=== PATIENT | male | born 1985 | race Caucasian/White ===

== ENCOUNTER 2016-12-23 05:16 | Emergency (ER) | payer MEDICAID ==
[~2016-12-23] VITALS: Ht 175.3 cm; Wt 80.3 kg
[2016-12-23] MEDS ORDERED: GABA-827 PO (05:34)
[2016-12-23 05:44] VITALS: BP 143/77
[2016-12-23] MEDS ORDERED: IBUPROFEN 200 MG TABLET ONE ×2 (06:37→06:38)
[2016-12-23] MEDS ORDERED: IBUPROFEN 200 MG TABLET PO ONE (07:00)
== END 2016-12-23 06:49 | disposition home or self-care (01) ==
LOC: ED 05:50
DX: J18.9 Pneumonia, unspecified organism (principal); J91.8 Pleural effusion in other conditions classified elsewhere; L98.8 Other specified disorders of the skin and subcutaneous tissue; Z85.828 Personal history of other malignant neoplasm of skin
CPT/HCPCS: 71020; 99284

== ENCOUNTER 2020-12-07 11:12 | Emergency (ER) | payer OTHER ==
[~2020-12-07] VITALS: Ht 175.3 cm; Wt 76.0 kg
[~2020-12-07 11:12] MED LIST: GABA-827 PO
[2020-12-07 11:33] VITALS: BP 155/110
== END 2020-12-07 12:07 | disposition home or self-care (01) ==
LOC: ED 11:45
DX: L03.211 Cellulitis of face (principal); L03.113 Cellulitis of right upper limb; F17.210 Nicotine dependence, cigarettes, uncomplicated
CPT/HCPCS: 99283